=== PATIENT | female | born 1955 | race Caucasian/White ===

== ENCOUNTER 2019-01-01 18:07 | Inpatient (IN) | payer BC ==
[~2019-01-01] VITALS: Ht 170.2 cm; Wt 111.1 kg
[2019-01-01] MEDS ORDERED: ACETYLCYSTEINE IV 6,000 MG/30 ML VIAL IV ONE (18:30)
[2019-01-01 18:39] LABS: BASOPHILS # (AUTO) 0.2 K/uL (0.0-8.0); BASOPHILS % (AUTO) 1.1 % (0.0-2.0); HEMATOCRIT 42.7 % (31.2-41.9); HEMOGLOBIN 14.3 g/dL (10.9-14.3); LYMPHOCYTES # (AUTO) 0.8 K/uL (20.0-40.0); LYMPHOCYTES % (AUTO) 5.4 % (20.5-51.5); MEAN CORPUSCULAR HEMOGLOBIN 29.4 uug (24.7-32.8); MEAN CORPUSCULAR HGB CONC 34 g/dL (32.3-35.6); MEAN CORPUSCULAR VOLUME 87.7 fL (75.5-95.3); MONOCYTES # (AUTO) 0.8 K/uL (2.0-10.0); MONOCYTES % (AUTO) 5.2 % (0.0-11.0); NEUTROPHILS # (AUTO) 13.6 K/uL (1.8-8.9); NEUTROPHILS % (AUTO) 88.3 % (38.5-71.5); PLATELET COUNT (AUTO) 414 K/uL (179-408); RED BLOOD CELL COUNT(AUTO) 4.86 MIL/uL (3.63-4.92); WHITE BLOOD COUNT (AUTO) 15.5 K/uL (3.8-11.8)
[2019-01-01 18:46] LABS: CARBON DIOXIDE 23 mmol/L (21-32); CHLORIDE 102 mmol/L (98-107); CREATININE 0.8 mg/dL (0.6-1.3); GLUCOSE 99 mg/dL (74-106); UREA NITROGEN, BLOOD 13 mg/dL (7-18)
[2019-01-01 18:53] LABS: POTASSIUM 2.7 mmol/L (3.5-5.1)
[2019-01-01 18:54] LABS: ETHANOL < 3 MG/DL (0-0)
[2019-01-01 18:59] LABS: ALANINE AMINOTRANSFERASE 43 U/L (14-59); ALKALINE PHOSPHATASE 114 U/L (50-136); ASPARTATE AMINOTRANSFERASE 23 U/L (15-37); BILIRUBIN,DIRECT 0.1 mg/dL (0.0-0.2); BILIRUBIN,TOTAL 0.3 mg/dL (0.2-1.0); TOTAL PROTEIN, SERUM 6.8 g/dL (6.4-8.2)
[2019-01-01] MEDS ORDERED: POTASSIUM CHLORIDE 20 MEQ TAB.PRT.SR PO ONE (19:00)
[2019-01-01 19:02] LABS: ACETAMINOPHEN 257.8 ug/mL (10-30)
--- NOTE | 2019-01-01 19:02 | NUR ---
PT IS IN ROOM #2A. DR OLSON EVALUATED THEV PT.
[2019-01-01 19:08] LABS: *BILIRUBIN,URIN NEGATIVE (NEGATIVE); *BLOOD, URINE NEGATIVE (NEGATIVE); *CLARITY,URINE CLEAR (CLEAR); *COLOR,URINE YELLOW (YELLOW); *KETONES,URINE NEGATIVE (NEGATIVE); *UROBILINOGEN,URINE 0.2 E.U./dl (NORMAL); LEUKOCYTE ESTERASE ,URINE NEGATIVE (NEGATIVE); NITRITE, URINE NEGATIVE (NEGATIVE); PH,URINE 5.5 (5.0-8.0); UGLUCOSE NEGATIVE (NEGATIVE)
--- NOTE | 2019-01-01 19:09 | NUR ---
REPORT GIVEN TO SHEET METAL WELDER RN.
[2019-01-01] MEDS ORDERED: DEXTROSE 50% 50 ML DISP.SYRIN ONE (19:14)
[2019-01-01] MEDS ORDERED: ACETYLCYSTEINE IV ONE ×2 (19:15→20:30)
[2019-01-01] MEDS ORDERED: ACETYLCYSTEINE 20% 6000 MG/30 ML VIAL PO ONE (19:15)
[2019-01-01] MEDS ORDERED: DEXTROSE 5% IV ONE ×2 (19:15→20:30)
[2019-01-01] MEDS ORDERED: DEXTROSE 50% 50 ML DISP.SYRIN IV ONE (19:15)
[2019-01-01] MEDS ORDERED: POTASSIUM CHLORIDE 20 MEQ TAB.PRT.SR ONE (19:20)
[2019-01-01] MEDS ORDERED: POTASSIUM CHLORIDE 50 ML ONE (19:20)
[2019-01-01] MEDS: POTASSIUM CHLORIDE 50 ML IV SCH ×2 (19:22→20:54)
[2019-01-01 19:28] LABS: *AMPHETAMINE, URINE NEGATIVE (NEGATIVE); *BARBITURATE, URINE NEGATIVE (NEGATIVE); *CANNABINOID, URINE NEGATIVE (NEGATIVE); *COCCAINE, URINE NEGATIVE (NEGATIVE); *OPIATE, URINE POSITIVE (NEGATIVE); *PHENCYCLIDINE SCREEN,URINE NEGATIVE (NEGATIVE)
--- NOTE | 2019-01-01 19:32 | NUR ---
PATIENT IN BED, NO ACUTE DISTRESS NOTED. VSS
--- NOTE | 2019-01-01 19:38 | NUR ---
Dr. Stacy speaking with Dr. Jennings.
--- NOTE | 2019-01-01 19:38 | NUR ---
Called [facility] to page Dr. Jennings.
--- NOTE | 2019-01-01 19:41 | NUR ---
ER MD SPEAKING TO ADMITTING MD FOR THIS PATIENT. PATIENT IS CURRENTLY IN BED, RESPONSIVE TO VERBAL AND TACTILE STIMULI.
--- NOTE | 2019-01-01 20:00 | NUR ---
REPORT GIVEN TO HILARY JUSTICE ON CCU
[2019-01-01] MEDS: IV 10% DEXTROSE 1,000 ML IV PRN ×2 (20:07→21:09)
[2019-01-01 20:16] LABS: CREATININE 0.8 mg/dL (0.6-1.3); POTASSIUM 2.9 mmol/L (3.5-5.1)
[2019-01-01 20:36] VITALS: BP 138/63
--- NOTE | 2019-01-01 20:36 | NUR ---
Received pt via chi, to CCU RM 3, DX: TYLENOL OVERDOSE, HYPOGLYCEMIA. IV lines left 22G FA infusing KCL 10 mEq, right hand 20G running MUCOMYST at 131.25 cc/hr for over 4 hours. Pt awake, AxO x3. Pt is forgetful at times, reorientation and redirection as needed. Discussed and reviewed plan of care with pt, pt has poor concentration but agrees with tx plan. Pt able to follow simple commands, cough and gag reflex present. O2 sat up to 99% RA. Tele placed and noted to be SR-SB with HR ranging from 54-62s. Pt NPO. Pt c/o of nausea at this time. Assessment completed. Aspiration precautions and safety measures initiated. Will continue care and all orders. Addendum: 01/01/19 at 2356 by HILARY ROY RN Amended: Links added. Addendum: 01/02/19 at 0654 by HILARY ROY RN Upon admission, pt noted to have droopy left eye. Pt reported to be her normal. Pertinent assessment done, JO noted.
--- NOTE | 2019-01-01 20:50 | NUR ---
Pt feeling nauseous, emesis noted - output of 300 cc. Zofran will be administered. Comfort measures and nursing interventions provided. HOB elevated, emesis basin at bedside. Continue to monitor.
[2019-01-01 21:00] VITALS: BP 139/44
[2019-01-01] MEDS: ONDANSETRON 4 MG/2 ML VIAL IV PRN (21:20)
[2019-01-01] MEDS: ENOXAPARIN SODIUM 40 MG/0.4 ML DISP.SYRIN SQ SCH (21:20)
--- NOTE | 2019-01-01 21:30 | NUR ---
MD MEAGHAN at [facility] to examine and evaluate pt. Full report given. New orders received. Will continue to monitor.
[2019-01-01 22:00] VITALS: BP 123/63
[2019-01-01] MEDS ORDERED: DEXTROSE 50% 50 ML DISP.SYRIN IV PRN (22:00)
[2019-01-01] MEDS ORDERED: BLOOD SUGAR DIAGNOSTIC 1 EACH STRIP VI SCH (22:00)
--- NOTE | 2019-01-01 22:45 | NUR ---
PICC line RN at bedside. PICC line insertion in progress. Continue to monitor pt.
[2019-01-01 23:00] VITALS: BP 119/48
[2019-01-02] VITALS (24 sets, daily range): BP systolic 113–181; BP diastolic 60–109
[2019-01-02] MEDS ORDERED: Z GUARD REMEDY PASTE 57 GM TUBE TOP PRN
[2019-01-02] MEDS ORDERED: ACETYLCYSTEINE IV 10,000 MG in IV D5W 1000ML 1,000 ML IV ONE (01:00)
--- NOTE | 2019-01-02 01:00 | NUR ---
Pt attempting to get out of bed, pt states shes feeling better and wants to go home. Pt reoriented and educated on risks of leaving facility AMA. Pt following orders at this time. Pt closely monitored.
--- NOTE | 2019-01-02 04:15 | NUR ---
Pt assisted to bedpan by RN steel floor pan placing supervisor and reported urine output of 150 cc. After 10 minutes, pt states she has urgency to void and discomfort. Pt unable to give to void. Bladder scanner performed and noted > 850 cc. Call made to , new orders received.
--- NOTE | 2019-01-02 04:45 | NUR ---
Catalan catheter FR 16 successfully inserted aseptically. Clear, yellow urine noted after insertion. Pt tolerated procedure well. Pt has no complaints of discomfort at this time.
--- NOTE | 2019-01-02 06:00 | NUR ---
AM care rendered, pt cleaned and dry. Pt assisted with turning and reposition. Pt has no complaints at this time. Will continue to monitor and endorse plan of care accordingly. Addendum: 01/02/19 at 0700 by HILARY ROY RN Pt denies SI. Reorientation and redirection as needed. Comfort measures maintained at all times.
[2019-01-02 06:21] LABS: BASOPHILS % (AUTO) 0.2 % (0.0-2.0); EOSINOPHILS % (AUTO) 0.4 % (0.0-7.0); HEMATOCRIT 41.9 % (31.2-41.9); HEMOGLOBIN 14.2 g/dL (10.9-14.3); LYMPHOCYTES # (AUTO) 2.1 K/uL (20.0-40.0); LYMPHOCYTES % (AUTO) 17.6 % (20.5-51.5); MEAN CORPUSCULAR HEMOGLOBIN 29.6 uug (24.7-32.8); MEAN CORPUSCULAR HGB CONC 34 g/dL (32.3-35.6); MEAN CORPUSCULAR VOLUME 87.3 fL (75.5-95.3); MONOCYTES # (AUTO) 0.7 K/uL (2.0-10.0); MONOCYTES % (AUTO) 5.7 % (0.0-11.0); NEUTROPHILS % (AUTO) 76.1 % (38.5-71.5); PLATELET COUNT (AUTO) 410 K/uL (179-408); WHITE BLOOD COUNT (AUTO) 11.8 K/uL (3.8-11.8)
[2019-01-02 06:36] LABS: BILIRUBIN,TOTAL 0.6 mg/dL (0.2-1.0); CREATININE 0.8 mg/dL (0.6-1.3); MAGNESIUM 1.9 mg/dL (1.8-2.4); PHOSPHOROUS 2.4 mg/dL (2.5-4.9); TOTAL PROTEIN, SERUM 6.2 g/dL (6.4-8.2)
[2019-01-02 06:41] LABS: POTASSIUM 2.4 mmol/L (3.5-5.1)
[2019-01-02 06:43] LABS: THYROID STIMULATING HORMONE 0.528 mIU/mL (0.358-3.740)
[2019-01-02] MEDS ORDERED: POTASSIUM CHLORIDE 50 ML IV SCH ×2 (07:30)
[2019-01-02] MEDS: ONDANSETRON 4 MG/2 ML VIAL IV PRN (08:10)
[2019-01-02] MEDS ORDERED: PANTOPRAZOLE SODIUM 40 MG VIAL IV SCH (09:00)
[2019-01-02] MEDS ORDERED: DEXTROSE 50% 50 ML DISP.SYRIN IV PRN (11:15)
[2019-01-02] MEDS ORDERED: INSULIN REGULAR, HUMAN 300 UNIT/3 ML VIAL SQ PRN (11:15)
[2019-01-02] MEDS ORDERED: ENALAPRILAT DIHYDRATE 2.5 MG/2 ML VIAL IV PRN (11:30)
[2019-01-02] MEDS: POTASSIUM PHOSPHATE MM 7.5 MMOL in IV DEXTROSE 5% 100 ML IV SCH ×2 (11:54→15:45)
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
[2019-01-02] MEDS: BENAZEPRIL HCL 10 MG TABLET PO SCH (12:02)
[2019-01-02] MEDS: FAMOTIDINE. 20 MG/2 ML VIAL IV SCH (12:03)
[2019-01-02] MEDS: BLOOD SUGAR DIAGNOSTIC 1 EACH STRIP VI SCH ×3 (13:18→20:57)
--- NOTE | 2019-01-02 14:00 | NUR ---
Noted HR increase~103/min,ST.Asked if anything bother her then she states having chest pain at the same times she try to leave her room. is in the unit with order stat For trop level and EKG. She is on the phone for period of time while staff waiting for EKG to be done. She won't let go her phone.Later on she agree to take insulin.
[2019-01-02 14:22] LABS: BILIRUBIN,DIRECT 0.2 mg/dL (0.0-0.2); BILIRUBIN,TOTAL 0.7 mg/dL (0.2-1.0); TOTAL PROTEIN, SERUM 6.5 g/dL (6.4-8.2)
[2019-01-02] MEDS ORDERED: ZIPRASIDONE MESYLATE 20 MG VIAL IM PRN (15:30)
[2019-01-02] MEDS: LORAZEPAM 2 MG/1 ML VIAL IV PRN ×2 (15:41→22:15)
[2019-01-02] MEDS: IV D5 1/2 NS 1000 ML 1,000 ML IV PRN (16:06)
[2019-01-02] MEDS: METOPROLOL TARTRATE 25 MG TABLET PO SCH ×2 (16:21→20:48)
[2019-01-02] MEDS ORDERED: HALOPERIDOL LACTATE 5 MG/1 ML VIAL IM PRN (16:30)
--- NOTE | 2019-01-02 16:30 | NUR ---
Her qaytwjpqv=983.Hold insulin for now. She does relaxs at this hour then asleep.Not in any distress.Acetaminophen=5.6. is Aware of result.
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
[2019-01-02] MEDS ORDERED: D5W IV ONE (19:45)
[2019-01-02] MEDS ORDERED: ACETYLCYSTEINE IV ONE (19:45)
--- NOTE | 2019-01-02 19:50 | NUR ---
Pt became restless and agitated, took off monitor leads and BP cuff. Pt started demanding personal belongings, got up and almost out of the room. Pt reoriented and assisted back in bed, explained importance of continuous monitoring and safety. Continue to monitor.
[2019-01-02 19:53] LABS: ACETAMINOPHEN < 2.0 ug/mL (10-30); ALANINE AMINOTRANSFERASE 59 U/L (14-59); ALKALINE PHOSPHATASE 100 U/L (50-136); ASPARTATE AMINOTRANSFERASE 21 U/L (15-37); BILIRUBIN,DIRECT 0.2 mg/dL (0.0-0.2); BILIRUBIN,TOTAL 0.7 mg/dL (0.2-1.0); TOTAL PROTEIN, SERUM 6.1 g/dL (6.4-8.2)
[2019-01-02] MEDS: ENOXAPARIN SODIUM 40 MG/0.4 ML DISP.SYRIN SQ SCH (20:49)
[2019-01-02] MEDS ORDERED: ACETYLCYSTEINE IV 0 MG in IV D5W 1000ML 1,000 ML IV ONE (21:00)
[2019-01-03] VITALS (23 sets, daily range): BP systolic 97–151; BP diastolic 48–91
--- NOTE | 2019-01-03 03:20 | NUR ---
Pt awake, started getting agitated. Reoriented and redirected pt, pt states she does not remember what happened.
--- NOTE | 2019-01-03 03:25 | NUR ---
Pt trying to get out of bed and states she needs to make a BM. Commode at bedside, pt assisted to commode. Pt sitting on commode and abruptly stood up and pulled villanueva cath out. Pt reoriented again, and appears that pt understands instructions.
--- NOTE | 2019-01-03 03:28 | NUR ---
Pt started walking out of room. Pt reoriented by 1:1 sitter and 2 RNs but pt agitation increases and starts to be combative. [facility] CALLED. Pt states she will give 2 million dollars to each healthcare professional if we let her go. Safety measures maintained at all times.
--- NOTE | 2019-01-03 03:34 | NUR ---
All [employer] personnel, including coal and ash supervisor, present. Pt now calmed down and stated she "does not remember what happened and that she was just dreaming." Pt assisted back in bed. Pt followed instructions and cooperative but still does not remember reason why she is in the hospital. Ativan given. Will closely monitor pt.
[2019-01-03] MEDS: LORAZEPAM 2 MG/1 ML VIAL IV PRN (04:09)
[2019-01-03 05:24] LABS: BILIRUBIN,TOTAL 0.5 mg/dL (0.2-1.0); CREATININE 0.8 mg/dL (0.6-1.3); PHOSPHOROUS 2.7 mg/dL (2.5-4.9); TOTAL PROTEIN, SERUM 5.7 g/dL (6.4-8.2)
[2019-01-03] MEDS: IV D5 1/2 NS 1000 ML 1,000 ML IV PRN ×2 (05:31→18:27)
[2019-01-03 05:35] LABS: POTASSIUM 2.8 mmol/L (3.5-5.1)
[2019-01-03 05:36] LABS: BASOPHILS # (AUTO) 0.1 K/uL (0.0-8.0); BASOPHILS % (AUTO) 0.9 % (0.0-2.0); EOSINOPHILS # (AUTO) 0.1 K/uL (0.0-0.7); EOSINOPHILS % (AUTO) 1.7 % (0.0-7.0); HEMATOCRIT 39.2 % (31.2-41.9); HEMOGLOBIN 13.4 g/dL (10.9-14.3); LYMPHOCYTES # (AUTO) 1.5 K/uL (20.0-40.0); LYMPHOCYTES % (AUTO) 18.6 % (20.5-51.5); MEAN CORPUSCULAR HEMOGLOBIN 29.8 uug (24.7-32.8); MEAN CORPUSCULAR HGB CONC 34 g/dL (32.3-35.6); MEAN CORPUSCULAR VOLUME 87.5 fL (75.5-95.3); MONOCYTES # (AUTO) 0.4 K/uL (2.0-10.0); MONOCYTES % (AUTO) 5.1 % (0.0-11.0); NEUTROPHILS # (AUTO) 6.1 K/uL (1.8-8.9); NEUTROPHILS % (AUTO) 73.7 % (38.5-71.5); PLATELET COUNT (AUTO) 285 K/uL (179-408); RED BLOOD CELL COUNT(AUTO) 4.48 MIL/uL (3.63-4.92); WHITE BLOOD COUNT (AUTO) 8.2 K/uL (3.8-11.8)
[2019-01-03] MEDS ORDERED: POTASSIUM CHLORIDE 50 ML IV SCH (05:45)
[2019-01-03] MEDS: POTASSIUM CHLORIDE 50 ML IV SCH ×6 (06:11→11:59)
[2019-01-03] MEDS: BLOOD SUGAR DIAGNOSTIC 1 EACH STRIP VI SCH ×4 (06:25→20:44)
--- NOTE | 2019-01-03 07:30 | NUR ---
RECIEVED PT LYINGIN BED AWAKE, ALERT AND ORIENTEDX3. VERY PLEASANT AND COOPERATIVE AT THIS TME. EXPRESSED GREAT DESIRE TO GO HOME TODAY. NO C/O OF PAIN AT THIS TIME. HR IS SR TO OCCASSIONAL ST IN THE LOW 100'S HR. MAIN IVF OF D51/2 NS AT 75ML/HR INFUSING WELL ON HER FILIPE PATENT AND INTACT.
--- NOTE | 2019-01-03 08:30 | NUR ---
NOTIFIED THE CRISIS TEAM AND SPOKE WITH IRINA IN REFERENCE TO THE CONSULT ON 01/01. HE WILL SEE THE PT TODAY.
--- NOTE | 2019-01-03 08:45 | NUR ---
NOTIFIED DR CINTRON ABOUT THE PHYSICIAN CONSULT IN REFERENCE TO THE ORDER MADE 01/02 AND REORDERED IT AGAIN TODAY A PSYCHIATRY CONSULT. HEWILL SEE THE PT TODAY.
[2019-01-03] MEDS: METOPROLOL TARTRATE 25 MG TABLET PO SCH ×2 (08:54→20:38)
[2019-01-03] MEDS: FAMOTIDINE. 20 MG/2 ML VIAL IV SCH (08:55)
[2019-01-03] MEDS: BENAZEPRIL HCL 10 MG TABLET PO SCH (08:55)
--- NOTE | 2019-01-03 10:30 | NUR ---
PT SEEN BY IRINA ( CRISIS TEAM ) AND SPOKEN TO PT AT LENGTH. PLACED PT ON A 5150 HOLD.
--- NOTE | 2019-01-03 17:00 | NUR ---
SEEN AND EXAMINED BY DR REYNOSO WITHOUT ANY ORDERS.
[2019-01-03] MEDS: ENOXAPARIN SODIUM 40 MG/0.4 ML DISP.SYRIN SQ SCH (20:39)
[2019-01-03] MEDS ORDERED: SERTRALINE HCL 50 MG TABLET PO SCH (21:00)
[2019-01-03] MEDS: ASPIRIN EC 81 MG TABLET.DR PO SCH (21:25)
[2019-01-04] VITALS (8 sets, daily range): BP systolic 93–157; BP diastolic 53–91
[2019-01-04] MEDS: LORAZEPAM 2 MG/1 ML VIAL IV PRN (00:33)
--- NOTE | 2019-01-04 00:33 | NUR ---
patient becoming mildly agitated and trying to get out of bed. Tried to reorient the patient and redirect. Patient continue to be agitated and anxious. Administered dose of lorazepam 1MG.
[2019-01-04] MEDS: ONDANSETRON 4 MG/2 ML VIAL IV PRN (04:23)
[2019-01-04 05:22] LABS: CREATININE 0.7 mg/dL (0.6-1.3); MAGNESIUM 2.1 mg/dL (1.8-2.4); PHOSPHOROUS 2.2 mg/dL (2.5-4.9); POTASSIUM 3.7 mmol/L (3.5-5.1)
[2019-01-04 05:23] LABS: BASOPHILS # (AUTO) 0.1 K/uL (0.0-8.0); BASOPHILS % (AUTO) 0.7 % (0.0-2.0); EOSINOPHILS # (AUTO) 0.3 K/uL (0.0-0.7); EOSINOPHILS % (AUTO) 3.8 % (0.0-7.0); HEMOGLOBIN 13.5 g/dL (10.9-14.3); LYMPHOCYTES # (AUTO) 2.2 K/uL (20.0-40.0); LYMPHOCYTES % (AUTO) 27.1 % (20.5-51.5); MEAN CORPUSCULAR HEMOGLOBIN 29.7 uug (24.7-32.8); MEAN CORPUSCULAR HGB CONC 34 g/dL (32.3-35.6); MEAN CORPUSCULAR VOLUME 88.5 fL (75.5-95.3); MONOCYTES # (AUTO) 0.7 K/uL (2.0-10.0); MONOCYTES % (AUTO) 8.4 % (0.0-11.0); NEUTROPHILS # (AUTO) 4.8 K/uL (1.8-8.9); PLATELET COUNT (AUTO) 344 K/uL (179-408); RED BLOOD CELL COUNT(AUTO) 4.53 MIL/uL (3.63-4.92)
--- NOTE | 2019-01-04 06:28 | NUR ---
patient with 1:1 sitter at bedside through out the night. Patient is compliant with medication administration. Patient is able to verbalize needs and needs have been met. patient denies any suicidal ideation or homicidal ideation at this time. Patient has picc line in FILIPE that is intact and patent.
[2019-01-04] MEDS: IV D5 1/2 NS 1000 ML 1,000 ML IV PRN (06:46)
[2019-01-04] MEDS ORDERED: PANTOPRAZOLE SODIUM 40 MG TABLET.DR PO SCH (07:00)
--- NOTE | 2019-01-04 07:23 | NUR ---
Received patient in bed resting AAOx2-3 with periods of anxiety and restlessness but responding well to reorientation. One to one sitter at bedside. Later on pt. on the phone with her son and at times over heard stating stating "I want this to be over I just wanna kill myself and be over with". Patient reassured by son and contracted with him agreeing to behave and not harm herself.
[2019-01-04] MEDS: ASPIRIN EC 81 MG TABLET.DR PO SCH (08:13)
[2019-01-04] MEDS: METOPROLOL TARTRATE 25 MG TABLET PO SCH (08:14)
[2019-01-04] MEDS: BENAZEPRIL HCL 10 MG TABLET PO SCH (08:14)
[2019-01-04] MEDS: POTASSIUM PHOSPHATE MM 5 MMOL in IV DEXTROSE 5% 100 ML IV SCH ×2 (11:24→13:12)
--- NOTE | 2019-01-04 11:37 | NUR ---
A call from [facility] mental health department social work assistant and a request to fax Jose Alfredo Chaudhary hold documentation received. Documents faxed as requested to fax .
--- NOTE | 2019-01-04 11:44 | NUR ---
Pt. down graded to med-surg, patient cooperative calm and quiet vitals signs stable. Will continue with care plan.
--- NOTE | 2019-01-04 13:30 | NUR ---
Dr. Morales psychiatrist services, in the unit to examine patient, orders received.
[2019-01-04] MEDS ORDERED: ARIPIPRAZOLE 5 MG TABLET PO SCH (13:45)
[2019-01-04] MEDS ORDERED: ARIPIPRAZOLE 2 MG TABLET PO SCH (13:47)
[2019-01-04] MEDS ORDERED: SERT50TA12 PO (14:36)
[2019-01-04] MEDS ORDERED: BENA10TA9 PO (14:36)
[2019-01-04] MEDS ORDERED: DOCU-141 PO (14:36)
[2019-01-04] MEDS ORDERED: METO25TA6 PO (14:36)
[2019-01-04] MEDS ORDERED: PANT40TA2 PO (14:36)
[2019-01-04] MEDS ORDERED: ASPI-618 PO (14:36)
[2019-01-04] MEDS ORDERED: MULT1TAB73 PO (14:36)
[2019-01-04] MEDS ORDERED: ARIP2TAB3 PO (14:36)
--- NOTE | 2019-01-04 15:34 | NUR ---
Attending physician Greyson Saeed in the unit to examine patient, full report given.
--- NOTE | 2019-01-04 15:45 | NUR ---
financial reporting director and Dinh Hopkins in the unit to delivered a couple of packages from [employer], packages sent to patient from her daughter Anthony Brenner. packages open by them and a couple of iphone charges 1 pair of socks. As indicated update of belongings list attempt at this time. And no belongings list found one was made with Kellie as witness many found placed on safety envelope and sent to nursing office safety. patient wearing a wrist watch (fossil) and a1 ring on left hand ([id number] kind yellow and silver color). and plastic bag medication receipt in the chart with patient.
--- NOTE | 2019-01-04 17:30 | NUR ---
Telephone report given to Dinh Torres all questions answered. Patient will be going up to room 329. with a one to one sitter.
--- NOTE | 2019-01-04 18:03 | NUR ---
At this time patient taken up to room 329 via wheelchair with one to one sitter assistance and 2 med-surge radiographic technologist's to assist with transfer. Patient left AAOX4 vitals signs stable no c/of discomfort. PICC line to RUE patent and SL at this time.
--- NOTE | 2019-01-04 18:33 | NUR ---
patient received from CCU, alert x1-2, no sob, resp even nonlabored,skin warm and dry to touch, no acute distress noted at this time, vitals stable BP 142/72,pulse 88, respirations 18, temp 98.0, pain 0/10. patient denied any suicidal thoughts at this time and denied any plan to harm herself, continue to monitor for safety. patient is discharging to [facility]
--- NOTE | 2019-01-04 19:39 | NUR ---
patient is in bed, no acute distress noted, report given to warehouse supervisor 3rd shift accordingly
--- NOTE | 2019-01-04 20:20 | NUR ---
PATIENT ALERT BUT FORGETFUL, PATIENT FOR DISCHARGE TO [facility] PICC LINE WAS REMOVED, PICC LINE TUBE INTACT. REPORT GIVEN TO [facility] STAFF, GIVEN PATIENT VALUABLE TO [facility] STAFF INCLUDING MEDICATIONS, AND CINTRON VALUE $2,121.00.
--- NOTE | 2019-01-04 20:33 | NUR ---
PLACE A CALL TO [facility]WIN[facility] STAFF JERALD RN TO MAKE SURE THAT PATIENT WILL BE ADMITTED.
== END 2019-01-04 20:30 | DRG 917 ==
LOC: ER 18:08 → CCU 20:06 → MEDSURG3 01-04 17:52
PROVIDERS: ADMIT Student in an Organized Health Care Education/Training Program; ATTEND Student in an Organized Health Care Education/Training Program
PROC: 02HV33Z Insertion of Infusion Device into Superior Vena Cava, Percutaneous Approach (ICD-10-PCS; principal; 2019-01-01)
PROC: B548ZZA Ultrasonography of Superior Vena Cava, Guidance (ICD-10-PCS; principal; 2019-01-01)
DX: T39.1X2A Poisoning by 4-Aminophenol derivatives, intentional self-harm, initial encounter (principal); G92 Toxic encephalopathy; I21.A1 Myocardial infarction type 2; E44.1 Mild protein-calorie malnutrition; E44.0 Moderate protein-calorie malnutrition; J98.11 Atelectasis; D68.59 Other primary thrombophilia; T38.3X2A Poisoning by insulin and oral hypoglycemic [antidiabetic] drugs, intentional self-harm, initial encounter; E16.0 Drug-induced hypoglycemia without coma; Y92.019 Unspecified place in single-family (private) house as the place of occurrence of the external cause; G70.00 Myasthenia gravis without (acute) exacerbation; F60.3 Borderline personality disorder; E87.6 Hypokalemia; F42.9 Obsessive-compulsive disorder, unspecified; F25.0 Schizoaffective disorder, bipolar type; F60.9 Personality disorder, unspecified; E66.9 Obesity, unspecified; Z68.38 Body mass index [BMI] 38.0-38.9, adult; Z79.899 Other long term (current) drug therapy; I10 Essential (primary) hypertension; F41.9 Anxiety disorder, unspecified; D72.828 Other elevated white blood cell count
CPT/HCPCS: 36415; 36569; 70030-TC; 71045; 80307; 83735; 84100; 84443; 85025; 85610; 87086; 93005; A4663; C1758; G0378; G0480; G0480-TC; J0132; J1630; J1650; J1815; J2060; J2405; J3480; J3490; J7030; J7060; J7070